=== PATIENT | female | born 1945 | race Caucasian/White ===

== ENCOUNTER → 2017-11-23 | Outpatient (CLI) | payer OTHER, SELFPAY ==
[~2017-11-23] MED LIST: ACIDOPHILUS1 EAC2 PO; ASPIR 8181 MG PO; BENAZEPRIL HCL10 MG PO; CRESTOR10 MG PO; CYCLOBENZAPRINE; FIBER LAXATIVE660 GM PO; HYDROCHLOROTHIA25 M2 PO; KEFLEX500 MG; NITROSTAT0.3 MG SL; NORCO 5-325 TA1 EACH PO; PERCOCET 5-3251 EACH; POTASSIUM GLUC500 MG PO; POTASSIUM20 PO; QUESTRAN LIGHT210 GM PO; VITAMIN D-32000 UNIT
== END ==
LOC: M.RAD 12:34
DX: R05 Cough (principal); Z90.12 Acquired absence of left breast and nipple

== ENCOUNTER 2019-08-23 14:38 | Emergency (ER) | payer OTHER, MEDICARE ==
[~2019-08-23] VITALS: Ht 157.5 cm; Wt 74.8 kg
[~2019-08-23 14:38] MED LIST changes: +BENAZEPRIL 10 M10 MG PO; -BENAZEPRIL HCL10 MG PO; +CLARITIN10 MG PO; +ELIQUIS5 MG PO; -FIBER LAXATIVE660 GM PO; +FIBER THERAPY PO; +LIDOCAINE PAIN1 EACH TOP; +NITROGLYCERIN0.4 MG SUBLING; +OXYBUTYNIN CHLOR5 M1 PO; +OXYCODONE-ACET1 EACH PO; +TOPROL XL25 MG PO
[2019-08-23] MEDS ORDERED: MELATONIN5 MG SUBLING (14:49)
[2019-08-23 15:51] VITALS: BP 135/84
== END 2019-08-23 15:51 | disposition home or self-care (01) ==
LOC: M.ERS 14:38
DX: S39.012A Strain of muscle, fascia and tendon of lower back, initial encounter (principal); I10 Essential (primary) hypertension; I48.91 Unspecified atrial fibrillation; Z90.49 Acquired absence of other specified parts of digestive tract; Z98.51 Tubal ligation status; Z85.3 Personal history of malignant neoplasm of breast; Z90.12 Acquired absence of left breast and nipple; Z88.1 Allergy status to other antibiotic agents; Z91.040 Latex allergy status; Z88.5 Allergy status to narcotic agent; Z88.2 Allergy status to sulfonamides; Z88.8 Allergy status to other drugs, medicaments and biological substances; V89.2XXA Person injured in unspecified motor-vehicle accident, traffic, initial encounter; Y93.89 Activity, other specified; Y92.89 Other specified places as the place of occurrence of the external cause; Y99.8 Other external cause status

== ENCOUNTER → 2020-03-14 | Outpatient (CLI) | payer OTHER, MEDICARE ==
[~2020-03-14] MED LIST changes: +MELATONIN5 MG SUBLING; +MULTAQ400 MG PO; +trilogy INH
== END ==
LOC: M.CT 10:27
DX: J84.10 Pulmonary fibrosis, unspecified (principal); I25.10 Atherosclerotic heart disease of native coronary artery without angina pectoris

== ENCOUNTER → 2020-10-03 | Outpatient (CLI) | payer MEDICARE ==
[~2020-10-03] MED LIST changes: +DOXYCYCLINE HYC50 M4 PO; +ERYTHROMYCIN E3.5 G3; +FERREX 150 PLU1 EAC1 PO; +KLOR-CON M2020 MEQ PO; +LASIX 20 MG TAB20 MG PO; +MIRALAX17 GM PO; +SENNA-TIME S T1 EACH PO; +VITAMIN D31250 MCG PO
== END ==
LOC: M.RAD 11:50
PROVIDERS: ATTEND Internal Medicine
DX: M25.512 Pain in left shoulder (principal); G89.29 Other chronic pain

== ENCOUNTER → 2021-03-05 | Outpatient (CLI) | payer OTHER | LOC: M.RAD 14:05 → M.ULTRA 14:05 | PROVIDERS: ATTEND Internal Medicine | DX: M17.12 Unilateral primary osteoarthritis, left knee (principal); M25.462 Effusion, left knee ==

== ENCOUNTER → 2021-07-25 | Outpatient (CLI) | payer OTHER | LOC: M.LAB 05:20 | PROVIDERS: ATTEND Anesthesiology | DX: E87.6 Hypokalemia (principal) ==